=== PATIENT | male | born 1980 | race African-American/Black ===

== ENCOUNTER 2020-01-10 20:30 | Emergency (ER) | payer OTHER ==
[2020-01-10] MEDS ORDERED: Proparacaine 0.5% Opth 15 ML BOT ONE (20:43)
--- NOTE | 2020-01-10 21:55 | CT ---
CT BRAIN WITHOUT CONTRAST: Comparison: None History: Loss of vision in the right eye after waking up from sleep. Technique: Multiple contiguous axial images were obtained in a CT of the brain without contrast. FINDINGS: There is a 6-7 mm area of hyperdensity along the right frontal temporal convexity. This could be sangeeta factual but an extraaxial mass or small hemorrhage cannot be entirely excluded. No large confluent in farction is seen. In intraventricular hemorrhage or hydrocephalus is seen. The calvarium and overlying soft tissues are unremarkable. The visualized paranasal sinuses and masto id air cells are well aerated. IMPRESSION: There is an indeterminate 6-7 mm lesion along the right frontal temporal convexity. This could repres ent an extraaxial mass, a small area of hemorrhage, or be artifactual. A repeat CT is recommended to evaluate for persistence. This can be performed in 4-6 hours. POS: EAA
[2020-01-10 23:49] LABS: #Basophils 0.1 thou/uL (0.0-0.2); #Lymphocytes 3.9 thou/uL (1.20-3.40); #Monocytes 0.7 thou/uL (0.11-0.59); #Neutrophils 6.5 thou/uL (1.40-6.50); %Basophils 1.1 % (0.0-1.0); %Eosinophils 0.3 % (0.0-10.0); %Lymphocytes 34.8 % (21.0-51.0); %Neutrophils 57.8 % (42.0-75.0); Hemoglobin 16.6 g/dL (14.0-18.0); Mean Corpuscular HGB CONC 33.9 g/dL (32.0-36.0); Mean Corpuscular Volume 94.3 fL (78.0-98.0); Mean Platelet Volume 8.2 fL (7.4-10.4); Platelet Count 176 thou/uL (130-400); RBC Distribution Width 11.6 % (11.5-14.5); White Blood Cell (WBC) Count 11.3 thou/uL (4.8-10.8)
[2020-01-10 23:54] LABS: PTT 28.7 SEC (22.9-36.1); Prothrombin Time 13.1 SEC (12.0-14.7)
[2020-01-11 00:10] LABS: ALT (SGPT) 20 U/L (8-55); AST (SGOT) 15 U/L (5-34); Albumin 4.3 g/dL (3.5-5.0); Alkaline Phosphatase 43 U/L (40-110); Anion Gap 14 mmol/L (10-20); BUN (Urea Nitrogen) 11 mg/dL (8.9-20.6); Bilirubin, Total 0.5 mg/dL (0.2-1.2); Calc. Creatinine Clearance 0 mL/min (70-130); Calcium 10.2 mg/dL (7.8-10.44); Carbon Dioxide 24 mmol/L (22-29); Chloride 103 mmol/L (98-107); Estimated GFR-MDRD 82; Globulin 3.5 g/dL (2.4-3.5); Glucose 94 mg/dL (70-105); Potassium 4.2 mmol/L (3.5-5.1); Protein, Total 7.8 g/dL (6.0-8.3); Sodium 137 mmol/L (136-145)
--- NOTE | 2020-01-11 07:20 | PRG ---
DATE OF SERVICE: 01/11/2020 We were consulted the last night on [facility] for neurosurgical opinion on vision loss in the right eye. Evidently, this 39-year-old kincaid of the [facility] was in his long-term unit when he woke from sleep with new onset vision loss on the right eye. CT examination of the brain was done showing some hyperdensity in the extra-axial area lateral to the temporal lobe on the patient's right side, the diameter of which was 6 mm. There is no other abnormality on the CT scan. We reported back to the emergency department that the imaging abnormality, if it was blood, was likely traumatic and we are missing parts of the history. If it was artifact, it could be proven with another study. An MR was recommended to work up for stroke resulting in a visual field cut, or an orbital CT for ocular and orbital pathology. The ED physician communicated that they would enlist the help of ophthalmology as well. We were not called back and the patient was discharged. Job ID: [id number]
== END 2020-01-11 01:38 | disposition short-term general hospital (02) ==
LOC: ERS 20:30 → EEVIPCON 20:30 → ERS 01-11 01:38
DX: H54.61 Unqualified visual loss, right eye, normal vision left eye (principal); F17.210 Nicotine dependence, cigarettes, uncomplicated
CPT/HCPCS: 36415; 70450; 80053; 85025; 85610; 85652; 85730

== ENCOUNTER 2020-11-05 16:46 | Emergency (ER) | END 2020-11-05 17:45 | disposition home or self-care (01) | LOC: ERS 16:46 | DX: S06.0X0A Concussion without loss of consciousness, initial encounter (principal); S46.911A Strain of unspecified muscle, fascia and tendon at shoulder and upper arm level, right arm, initial encounter; F17.210 Nicotine dependence, cigarettes, uncomplicated; V89.2XXA Person injured in unspecified motor-vehicle accident, traffic, initial encounter | CPT/HCPCS: 99283 ==

== ENCOUNTER 2022-08-13 20:22 | Emergency (ER) | payer SELFPAY ==
[2022-08-13 22:06] LABS: Bacteria/HPF None Seen HPF (None Seen); Bilirubin Negative (Negative); Blood, Urine Trace (Negative); Clarity Turbid (Clear); Glucose, Urine (Dipstick) Normal (Negative); Ketone, Urine Negative (Negative); Leukocyte 500 Leu/uL (Negative); Nitrite Negative (Negative); Protein, Urine (Dipstick) 10 mg/dL (Neg-Trace); RBC/HPF 0-3 HPF (0-3); Specific Gravity, Urine 1.022 (1.002-1.036); Squamous Epithelial 0-3 HPF (0-3); WBC/HPF Greater than 50 HPF (0-3); pH, Urine 6.5 (5.0-9.0)
[2022-08-13] MEDS ORDERED: cefTRIAXone\\ROCEPHIN 500 MG VIAL ONE (22:17)
[2022-08-13] MEDS ORDERED: Lidocaine 1% MPF 2 ML VIAL ONE (22:18)
[2022-08-14 19:45] LABS: Chlam.trachomatis by PCR,Urine Not Detected (NotDetected)
== END 2022-08-13 22:56 | disposition home or self-care (01) ==
LOC: ERS 20:22
DX: Z11.3 Encounter for screening for infections with a predominantly sexual mode of transmission (principal); F17.210 Nicotine dependence, cigarettes, uncomplicated
CPT/HCPCS: 81003; 81015; 87086; 87491; 87591; 96372; 99283; J0696